=== PATIENT | female | born 1985 | race Two or more races ===

== ENCOUNTER 2024-09-04 21:41 | Emergency (ER) | payer MEDICAID, OTHER ==
[~2024-09-04] VITALS: Ht 165.1 cm; Wt 113.4 kg
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
[2024-09-04 22:21] VITALS: BP 119/76; PULSE 84; RESP 18; TEMP 98.2; O2SAT 98
[2024-09-04] MEDS ORDERED: ONDANSETRON ODT 4 MG TAB PO ONE (22:30)
[2024-09-04] MEDS ORDERED: IBUPROFEN 600 MG TAB PO ONE (22:30)
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
== END 2024-09-05 01:20 | disposition home or self-care (01) ==
LOC: ER 21:41
DX: S13.4XXA Sprain of ligaments of cervical spine, initial encounter (principal); V49.40XA Driver injured in collision with unspecified motor vehicles in traffic accident, initial encounter; Y93.I9 Activity, other involving external motion; Y92.488 Other paved roadways as the place of occurrence of the external cause; Y99.8 Other external cause status
CPT/HCPCS: 72040